=== PATIENT | male | born 1940 | race Caucasian/White ===

== ENCOUNTER → 2017-04-24 | Day surgery (SDC) | payer OTHER ==
[~2017-04-24] MED LIST: ACTOS PO; ASPIRIN PO; AVODART0.5 MG PO; EXFORGE; FLOMAX0.4 M1 PO; FLOMAX0.4 MG PO; HYZAAR 100-12.1 EACH PO; HYZAAR 50-12.51 TAB PO; JANUVIA50 MG PO; LIPITOR PO; LOVASTATIN10 MG PO; MELOXICAN; METFORMIN HCL1000 M1 PO; METFORMIN PO; MOBIC PO; SYNTHROID PO; TEKTURNA150 MG PO; TIROSINT50 MCG PO; VITAMIN D-32000 UNI1 PO
--- NOTE | ~2017-04-24 | OR ---
Unit #: [id number] #: [id number] Patient: PETAR COOMBS [id number] [address] [address] [id number] O MR#: [id number] NAME: PETAR COOMBS ROOM: Date of Procedure: 04/24/2017 Admission Date: 04/24/2017 Surgeon: Hayes Louis M.D. : 1940 Attending Physician: Hayes Louis M.D. Primary Care Physician: Primary Care Physician No OPERATIVE REPORT PREOPERATIVE DIAGNOSES 1. Screening colonoscopy. 2. History of colonic polyps. POSTOPERATIVE DIAGNOSES 1. Screening colonoscopy. 2. History of colonic polyps. PROCEDURE PERFORMED Colonoscopy to cecum. ANESTHESIA Monitored anesthesia care. FINDINGS The patient was found to have sigmoid diverticulosis, mild internal hemorrhoids. SPECIMENS None. COMPLICATIONS None apparent. CONDITION The patient tolerated the procedure well. INDICATIONS FOR PROCEDURE The patient is a 76-year-old white male who had last screening colonoscopy 5 years ago and had a polyp present. He presents at this time for screening colonoscopy. DESCRIPTION OF PROCEDURE After obtaining informed consent, the patient was brought to the endoscopy suite and after adequate monitored anesthesia care, had digital examination performed. No apparent masses were palpable. Good sphincter tone was present. The colonoscope was placed through the anus and slowly advanced to the level of cecum without difficulty with the lumen always in view. The cecum was normal as was the ileocecal valve. The ascending colon was normal as was the hepatic flexure, transverse colon, splenic flexure, and descending colon. The patient had scattered sigmoid Unit #: [id number] #: [id number] Patient: PETAR COOMBS diverticula in the sigmoid colon, but there were not very numerous or very deep. No other abnormalities were seen. The rectosigmoid and rectum were all within normal limits. On retroflexing in the rectum to the anorectal junction, there was some mild internal hemorrhoids seen. The scope was removed without difficulty. The patient went from the endoscopy suite to recovery area in stable condition. RECOMMENDATIONS High-fiber diet, lots of liquids, tucks or wipes p.r.n., diverticular sheet given. Dictated by... Hayes Louis M.D. DUSTIN/marisoll TD: 04/25/2017 00:24 JOB #: [id number] CC: [facility] OPERATIVE REPORT Page 1 of 1 X Hayes Louis MD PROCEDURE OPERATIVE NOTE
== END | disposition home or self-care (01) ==
LOC: COPS 05:59
DX: Z12.11 Encounter for screening for malignant neoplasm of colon (principal); K64.8 Other hemorrhoids; K57.30 Diverticulosis of large intestine without perforation or abscess without bleeding; E03.9 Hypothyroidism, unspecified; E11.9 Type 2 diabetes mellitus without complications; I10 Essential (primary) hypertension; Z88.8 Allergy status to other drugs, medicaments and biological substances; Z98.890 Other specified postprocedural states; Z86.010 Personal history of colon polyps; Z79.84 Long term (current) use of oral hypoglycemic drugs; Z79.899 Other long term (current) drug therapy
CPT/HCPCS: 82947